=== PATIENT | female | born 1975 | race Hispanic/Latino ===

== ENCOUNTER 2019-03-14 17:50 | Emergency (ER) | payer OTHER ==
[2019-03-14] MEDS ORDERED: KETOROLAC TROMETHAMINE 60 MG/2 ML VIAL ONE (18:28)
== END 2019-03-14 18:41 | disposition home or self-care (01) ==
LOC: EDH 17:50
DX: K64.9 Unspecified hemorrhoids (principal); Z91.012 Allergy to eggs; Z90.710 Acquired absence of both cervix and uterus; Z98.890 Other specified postprocedural states
CPT/HCPCS: 96372; 99283; J1885